=== PATIENT | female | born 1945 | race Caucasian/White ===

== ENCOUNTER 2019-01-29 08:44 | Emergency (ER) | payer MEDICARE ==
--- NOTE | 2019-01-29 09:41 | RAD ---
XR Wrist 3 Lt View STANDARD: 01/29/2019 8:58 AM CLINICAL INDICATION: Left wrist pain COMPARISON: None. TECHNIQUE: 3 views. Laterality: Left. FINDINGS: Bones: There is diffuse osteopenia. There is a comminuted dorsally impacted intra-articular distal r adius fracture. There is a vertically oriented component extending between the lunate and scaphoid fossa of the distal radial articular surface. The distal radial fracture fragment is dorsally impacte d. The intra-articular fracture components appear minimally to nondisplaced. There is mild ulnar positive configuration at the DRUJ. 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 Soft Tissue: There is soft tissue swelling surrounding the left wrist.. IMPRESSION: Comminuted, dorsally impacted, intra-articular distal radius fracture..
== END 2019-01-29 10:40 | disposition home or self-care (01) ==
LOC: ERS 08:44
DX: S52.502A Unspecified fracture of the lower end of left radius, initial encounter for closed fracture (principal); F17.210 Nicotine dependence, cigarettes, uncomplicated; J44.9 Chronic obstructive pulmonary disease, unspecified; E78.5 Hyperlipidemia, unspecified; I10 Essential (primary) hypertension; W01.198A Fall on same level from slipping, tripping and stumbling with subsequent striking against other object, initial encounter
CPT/HCPCS: 25600